=== PATIENT | male | born 1940 | race Caucasian/White ===

== ENCOUNTER → 2017-03-12 | Outpatient (CLI) | payer MEDICARE, BC | LOC: SUN.DIA 03-06 14:28 | DX: E11.9 Type 2 diabetes mellitus without complications (principal); Z71.3 Dietary counseling and surveillance; Z68.25 Body mass index [BMI] 25.0-25.9, adult; E78.5 Hyperlipidemia, unspecified ==

== ENCOUNTER 2017-10-02 01:13 | Emergency (ER) | payer MEDICARE, BC ==
[~2017-10-02] VITALS: Ht 185.4 cm; Wt 90.9 kg
[2017-10-02 01:16] VITALS: TEMP 97.6
[2017-10-02 01:40] LABS: BASO # 0.1 (0.0-0.2); BASO % 0.6 % (0.0-2.0); EOS # 0.2 (0.0-0.7); EOS % 1.2 % (0-4.0); GRAN # 7.4 (1.4-6.5); GRAN % 59.1 % (42.2-75.2); HEMOGLOBIN 14.4 g/dl (13.5-18.0); LYMPH # 3.8 (1.2-3.4); LYMPH % 30.5 % (20.0-51.0); MEAN CELL VOLUME 95 fl (80.0-100.0); MEAN CORPUSCULAR HEMOGLOBIN 32 pg (27.0-31.0); MEAN CORPUSCULAR HGB CONC 34 g/dl (33.0-37.0); MEAN PLATELET VOLUME 10.5 fl (7.4-10.4); MONO # 1.1 (0.1-0.6); MONO % 8.4 % (1.7-9.3); PLATELET COUNT 231 K/mm3 (130-400); RED BLOOD COUNT 4.51 M/mm3 (4.20-5.60); WHITE BLOOD COUNT 12.5 K/mm3 (4.8-10.8)
[2017-10-02 01:41] LABS: INR 1.1 (0.8-3.0); PROTHROMBIN TIME 12.7 SECONDS (9.7-12.8)
[2017-10-02 01:46] LABS: ADJUSTED CALCIUM 9.5 mg/dL (8.4-10.2); ALANINE AMINOTRANSFERASE 37 U/L (21-72); ALBUMIN 4.9 gm/dL (3.5-5.0); ALKALINE PHOSPHATASE 68 U/L (50-136); ANION GAP 13 mmol/L (7-16); BILIRUBIN,TOTAL 0.6 mg/dL (0.0-1.0); BLOOD UREA NITROGEN 27 mg/dL (9-20); CALCIUM 10.2 mg/dL (8.4-10.2); CARBON DIOXIDE 23 mmol/L (22-30); CHLORIDE 104 mmol/L (98-107); CREATINE KINASE 106 U/L (55-170); CREATININE, serum 1.12 mg/dL (0.66-1.25); GLUCOSE 100 mg/dL (74-106); POTASSIUM 4.7 mmol/L (3.4-5.0); SODIUM 141 mmol/L (137-145); TOTAL PROTEIN 8.3 gm/dL (6.4-8.2)
[2017-10-02 01:58] LABS: TROPONIN-I < 0.012 ng/mL (0.000-0.034)
[2017-10-02] MEDS ORDERED: EPA FISH OIL1 SGL PO (02:10)
[2017-10-02] MEDS ORDERED: GLUMETZA500 MG PO (02:10)
[2017-10-02] MEDS ORDERED: VITAMIN FLUSH-F1 CAP (02:11)
[2017-10-02] MEDS ORDERED: VITAMIN B COMPL1 SGL PO (02:11)
[2017-10-02] MEDS ORDERED: NATURAL E400 IU PO (02:12)
[2017-10-02] MEDS ORDERED: VITAMINC1000TA (02:12)
[2017-10-02] MEDS ORDERED: VITAMIN D31000 I1 PO (02:12)
[2017-10-02] MEDS ORDERED: ASPIRIN 81M81 MG/TA2 PO (02:13)
[2017-10-02] MEDS ORDERED: PRINIVIL10 MG PO (02:13)
[2017-10-02 02:52] LABS: COLLECTION METHOD CLEAN CATCH
[2017-10-02 03:01] LABS: MUCOUS Present /lpf; PH 6 (5-8); SQUAMOUS EPITHELIAL None Seen /hpf; URINE APPEARANCE Hazy; URINE BACTERIA None Seen /hpf; URINE BILIRUBIN Negative (NEGATIVE); URINE BLOOD Negative (NEGATIVE); URINE COLOR Amber; URINE GLUCOSE Negative (NEGATIVE); URINE KETONE Negative (NEGATIVE); URINE LEUKOCYTE ESTERASE Negative (NEGATIVE); URINE PROTEIN(semi-quant) Negative (NEGATIVE); URINE UROBILINOGEN Negative (NEGATIVE)
[2017-10-02] MEDS ORDERED: CEFTIN500 MG PO (03:13)
[2017-10-02 03:37] VITALS: BP 127/66; PULSE 70
== END 2017-10-02 03:39 | disposition home or self-care (01) ==
LOC: COL.ER 01:13
PROVIDERS: Emergency Medicine
DX: N39.0 Urinary tract infection, site not specified (principal); R42 Dizziness and giddiness; E11.9 Type 2 diabetes mellitus without complications; Z86.79 Personal history of other diseases of the circulatory system; Z79.84 Long term (current) use of oral hypoglycemic drugs; Z79.82 Long term (current) use of aspirin; Z95.828 Presence of other vascular implants and grafts; Z98.890 Other specified postprocedural states
CPT/HCPCS: J7030

== ENCOUNTER → 2019-11-05 | Outpatient (CLI) | payer MEDICARE, BC ==
[~2019-11-05] MED LIST: ASPIRIN 81M81 MG/TA2 PO; CEFTIN500 MG PO; EPA FISH OIL1 SGL PO; GLUMETZA500 MG PO; NATURAL E400 IU PO; PRINIVIL10 MG PO; VITAMIN B COMPL1 SGL PO; VITAMIN D31000 I1 PO; VITAMIN FLUSH-F1 CAP; VITAMINC1000TA
== END ==
LOC: COL.RAD 09:45
DX: I71.3 Abdominal aortic aneurysm, ruptured (principal); N40.0 Benign prostatic hyperplasia without lower urinary tract symptoms
CPT/HCPCS: Q9967

== ENCOUNTER → 2020-03-14 | Outpatient (CLI) | payer MEDICARE, BC | LOC: COL.VAS 12:27 | DX: M79.89 Other specified soft tissue disorders (principal) ==

== ENCOUNTER 2020-10-23 11:03 | Inpatient (IN) | payer MEDICARE, BC ==
[~2020-10-23] VITALS: Ht 185.4 cm; Wt 84.9 kg
[~2020-10-23 11:03] MED LIST changes: +B-12 500 MCG PO; -EPA FISH OIL1 SGL PO; +MASON NATURAL1200 MG PO; +MASON NATURAL2000 IU PO; -PRINIVIL10 MG PO; +PRINIVIL20 MG PO; -VITAMIN B COMPL1 SGL PO; -VITAMIN D31000 I1 PO
[2020-10-23 12:00] LABS: BASO # 0.1 (0.0-0.2); BASO % 0.4 % (0.0-2.0); EOS # 0.1 (0.0-0.7); EOS % 0.7 % (0-4.0); GRAN # 13.1 (1.4-6.5); GRAN % 78.7 % (42.2-75.2); HEMATOCRIT 38.8 % (42.0-52.0); HEMOGLOBIN 12.9 g/dl (13.5-18.0); LYMPH % 11.9 % (20.0-51.0); MEAN CELL VOLUME 93 fl (80.0-100.0); MEAN CORPUSCULAR HEMOGLOBIN 31 pg (27.0-31.0); MEAN CORPUSCULAR HGB CONC 33 g/dl (33.0-37.0); MEAN PLATELET VOLUME 9.7 fl (7.4-10.4); MONO # 1.2 (0.1-0.6); MONO % 7.1 % (1.7-9.3); PLATELET COUNT 306 K/mm3 (130-400); RED BLOOD COUNT 4.19 M/mm3 (4.20-5.60); REDCELL DISTRIBUTION WIDTH-CV 13.8 % (11.5-14.5)
[2020-10-23 12:21] LABS: ALBUMIN 4.2 gm/dL (3.5-5.0); BILIRUBIN,TOTAL 0.6 mg/dL (0.0-1.0); CALCIUM 9.9 mg/dL (8.4-10.2); CREATININE, serum 0.84 (0.66-1.25); POTASSIUM 4.3 mmol/L (3.4-5.0)
[2020-10-23 13:20] LABS: COLLECTION METHOD CLEAN CATCH
[2020-10-23 13:42] LABS: MUCOUS Present /lpf; PH 5 (5-8); SQUAMOUS EPITHELIAL 0-2 /hpf; URINE APPEARANCE Cloudy; URINE BACTERIA Rare /hpf; URINE BILIRUBIN Negative (NEGATIVE); URINE BLOOD 1+ (NEGATIVE); URINE COLOR Yellow; URINE GLUCOSE Negative (NEGATIVE); URINE KETONE Trace (NEGATIVE); URINE LEUKOCYTE ESTERASE 3+ (NEGATIVE); URINE NITRATE Negative (NEGATIVE); URINE PROTEIN(semi-quant) 1+ (NEGATIVE); URINE UROBILINOGEN Negative (NEGATIVE)
[2020-10-23 15:13] VITALS: BP 141/63; PULSE 102; TEMP 99.3
[2020-10-23 16:30] VITALS: BP 156/78; PULSE 89
[2020-10-23] MEDS ORDERED: FLOMAX 0.40.4 MG/CAP PO (17:15)
[2020-10-23] MEDS ORDERED: LIPITOR20 MG PO (17:16)
[2020-10-23] MEDS ORDERED: CENTRUM SILVER1 TAB PO (17:17)
--- NOTE | 2020-10-23 18:00 | NUR ---
Patient is resting comfortably. Denies nausea. Patient is better with the dilauded RAILWAY SIGNALLING ENGINEER. Explained how RAILWAY SIGNALLING ENGINEER works and how the button works. Explained how often he can press the button. Dr Bell seen patient. No other changes at this time. Patient voided once, no stone in urine. Vital signs stable. Patient has severe anxiety that causes him to not be able to control his muscle movement and will have spastic arm and leg movement. Dr Bell stopped to see patient but patient was sleeping so he let him sleep and said he will check in the morning. No other changes at this time. Call light within reach.
--- NOTE | 2020-10-23 18:30 | NUR ---
Pt currently lying in bed. Pt stated that he has no pain at this time. He does still have the tremors. Pt is alert and oriented x4. Received report from MINERVA Evangelista.
[2020-10-23 20:00] VITALS: BP 154/64; PULSE 110
--- NOTE | 2020-10-23 21:30 | NUR ---
During pt assessment. Pt oxygen was down to the 80s. Pt was put on 4 liters of oxygen at this time and respiratory therapy was contacted. Pt spasms were very intensed. Pt blood pressure was 100/50 mannually, pt ax temp was at 103.1 and respirations were 24. Dr. Bell was contacted at this time and stated that he wants the pt to go to OR. He spoke with warehouse pricing and inventory clerk at this time. I am currently at pt bedside. Pt is currently lying in bed and his oxygen level is at 96% on room air. Dr. Bell did order pt to have 2gm of Rocephin and this medication was given at this time. Pt consent was verbally verfied by his , pt wanted his to consent. This was verified by myself and MINERVA Llamas. Pt was informed about going into surgery. He has no complaints at this time. He is currently resting in bed and his his call light within reach and his bed is in lowest position.
[2020-10-23 21:31] VITALS: BP 100/40; PULSE 126; TEMP 103.1
--- NOTE | 2020-10-23 22:44 | NUR ---
Pt. off the floor to PACU with MINERVA Oscar.
[2020-10-24] VITALS (15 sets, daily range): BP systolic 84–145; BP diastolic 34–84; PULSE 78–118; TEMP 97.6–99.3
--- NOTE | 2020-10-24 00:28 | NUR ---
Pt arrived to the floor and is alert and oriented x4. Pt arrived via strecher. Pt stated that he has no pain at this time. Pt still has tremors. Pt vitals are within normal limits and his lungs sounds are clear and heart sounds are normal S1 and S2 sounds. Pt cherry is in place and has light peach colored urine in the tube at this time. Pt does not have any urine in the meter. Pt has his call light within reach and his bed is in lowest position.
--- NOTE | 2020-10-24 01:37 | NUR ---
Pt currently resting in bed. Pt stated that he has no pain at this time. He said he just feels like he has to go. Pt current blood pressure was done with the mannually and I was 110/50. Pt oxygen is currently at 100 but he ius sitll on 2 liters of oxygen. Pt cherry is currently draining peach colored urine. The amount of output currenty is 25cc this was with positioning the tubing. Pt did tolerate some water and was able to tolerate some sips of water. Pt has his call light within reach. His bed is in lowest position.
--- NOTE | 2020-10-24 02:03 | NUR ---
Pt currently resting in bed. Pt has his call light within reach. No tremors noted while pt is sleeping.
--- NOTE | 2020-10-24 02:32 | NUR ---
Dr. Bell was notified because pt currently output was 10cc in an hour. He ordered a bolus of 250. Bolus was done at this time from pt current fluids. Pt current blood pressure is 90/49 and heart rate at 101 and current temperature is 98.9. Pt has no complaints of pain at this time. Pt has his call light within reach and his bed is in lowest position.
--- NOTE | 2020-10-24 03:37 | NUR ---
Pt resting in bed and has his call light within reach.
--- NOTE | 2020-10-24 04:09 | NUR ---
Contacted Dr. Bell and gave him and update on the pt. Pt still in the last hour only got about 25cc. He ordered another bolus of 250. Pt was updated on everything. Pt has been taking sips and he has been tolerating the ice chips.
--- NOTE | 2020-10-24 05:17 | NUR ---
Pt resting in bed. Tremors aren't noted at this time. Pt is currently sleeping. Pt still has 20-[address] Bell has been notified. He was the pt to continued being monitored. He wants to see if pt output will increase. Pt blood pressure did increase 111/55 and heart rate is at 88. Pt has his call light within reach and his be is in lowest position.
--- NOTE | 2020-10-24 05:56 | NUR ---
Contacted Dr. Cortes at this time to update him on pt status and pt lactic acid lab. I informed him that his lactic acid lab was at 3.1. I also updated him on the pt urine output that has not really increased. Pt blood pressure are closer to the normal range now. Pt last blood pressure was 110/50. did inform me that he wanted me to contact Dr. Oreilly if I have anymore questions for this pt since he had him on yesterday. He also wanted the lactic acid level redrawn at 1000. Orders has been placed and pt has his call light within reach and his bed is in lowest position.
--- NOTE | 2020-10-24 06:03 | NUR ---
Pt resting in bed. No tremors noted at this time. Pt has his call light within reach. Pt urine out put was 30cc the last hour. Dr. Cortes was notifed about the pt condtion.
--- NOTE | 2020-10-24 06:50 | NUR ---
Dr. Bell came in to see pt this morning. He was updated about pt labs and the urine output. Pt stated that he has no pain at this time. Pt has his call light within reach and his bed is in lowest position.
--- NOTE | 2020-10-24 09:50 | NUR ---
Initial visit; Patient thanked Skilled Nursing Case Manager for keeping him in her prayers and offering God's blessings.
--- NOTE | 2020-10-24 10:30 | NUR ---
SW met with the patient to discuss discharge plan. The patient lives in [place] with his , Shana (ph#[phone]). He reports independence with ADLs and does not have any DME. The patient's PCP is Dr. Maria Luisa Awan and he receives his medications from [facility]. He reports no difficulties obtaining his meds. The patient does not have a DPOA-HC in EMR, but he states that he does have one completed and that his is his DPOA-HC. The patient plans to return home with his upon discharge. CHARLIE then contacted and reviewed the d/c plan with the patient's , Shana. Shana reports no concerns with the patient returning back home upon discharge. No additional needs at this time.
[2020-10-24 16:32] LABS: CALCIUM 7.8 mg/dL (8.4-10.2); CREATININE, serum 1.82 (0.66-1.25); POTASSIUM 4.7 mmol/L (3.4-5.0)
[2020-10-24 16:49] LABS: MEAN CELL VOLUME 94 fl (80.0-100.0); MEAN CORPUSCULAR HGB CONC 33 g/dl (33.0-37.0); MEAN PLATELET VOLUME 9.3 fl (7.4-10.4); RED BLOOD COUNT 3.34 M/mm3 (4.20-5.60); REDCELL DISTRIBUTION WIDTH-CV 14.6 % (11.5-14.5)
[2020-10-24 16:50] LABS: HEMATOCRIT 31.3 % (42.0-52.0); HEMOGLOBIN 10.4 g/dl (13.5-18.0); MEAN CORPUSCULAR HEMOGLOBIN 31 pg (27.0-31.0); PLATELET COUNT 162 K/mm3 (130-400)
--- NOTE | 2020-10-24 17:00 | NUR ---
Patient with increased SOA, oximeter currently at 2l/nc via oxymask, oximeter 78%. Oxygen increased to 5l/nc via oxymask, oximeter increased to 96%. Coarse lung sounds to bilateral bases, limited air movement noted. Use of accessory muscles noted with breath. CARSON Hassan notified.
--- NOTE | 2020-10-24 17:08 | NUR ---
Dr Oreilly notified of lab results.
[2020-10-24 17:18] LABS: BAND 33 % (0-10); EOSINOPHIL 0 % (0-4); LYMPHOCYTE 7 % (20.0-51.0); METAMYELOCYTE 0 % (0-0); MYELOCYTE 1 % (0-0); NEUTROPHILS 56 % (42.0-75.2); PLATELET ESTIMATE NORMAL (NORMAL)
[2020-10-24 18:05] LABS: ARTERIAL BLD GAS O2 SATURATION 89.5 % (92-100); ARTERIAL BLD GAS TCO2 CT 17.8; ARTERIAL BLOOD GAS HCO3 16.6 meq/L (22-26); ARTERIAL BLOOD GAS PCO2 38.9 mmHg (35-45); ARTERIAL BLOOD GAS PO2 65.1 mmHg (80-100); ARTERIAL BLOOD GAS pH 7.25 (7.35-7.45)
--- NOTE | 2020-10-24 19:30 | NUR ---
Patient called for an updated. Updated. No further questions at this time.
--- NOTE | 2020-10-24 19:35 | NUR ---
Per JENNIFER Georges send out covid. Do not place patient in isolation, not a PUI.
--- NOTE | 2020-10-24 20:40 | NUR ---
Left for CT scan
--- NOTE | 2020-10-24 20:45 | NUR ---
Resting in bed. Assessment complete. Right lower lobe diminished otherwise clear. Heart sounds irregular. Bowels active x4. Pulses present throughout. Bilateral lower ext edema +2. Valentin to dependent drainage, tea colored cloudy urine. Denies needs. Denies pain. Call light in reach. Patient currently on 6 liters via oxymask.
--- NOTE | 2020-10-24 20:46 | NUR ---
Returned from CT
--- NOTE | 2020-10-25 | NUR ---
Resting in bed. Reported right groin pain. Provided with schedule toradol. Will monitor.
[2020-10-25 00:11] VITALS: BP 130/79; PULSE 81; TEMP 98.3
[2020-10-25 04:00] VITALS: BP 144/57; PULSE 74; TEMP 97.8
--- NOTE | 2020-10-25 04:15 | NUR ---
Resting in bed. Denies needs. Call light in reach.
--- NOTE | 2020-10-25 05:19 | NUR ---
Patient remained on 6 liters during night. Otherwise uneventful night. Resting in bed this AM. Call light in reach.
--- NOTE | 2020-10-25 07:07 | NUR ---
Report given to MINERVA Urban
[2020-10-25 07:47] LABS: MEAN CELL VOLUME 93 fl (80.0-100.0); MEAN CORPUSCULAR HEMOGLOBIN 31 pg (27.0-31.0); MEAN CORPUSCULAR HGB CONC 33 g/dl (33.0-37.0); MEAN PLATELET VOLUME 10.5 fl (7.4-10.4); PLATELET COUNT 176 K/mm3 (130-400); RED BLOOD COUNT 3.53 M/mm3 (4.20-5.60); REDCELL DISTRIBUTION WIDTH-CV 14.6 % (11.5-14.5)
[2020-10-25 07:52] LABS: HEMATOCRIT 32.9 % (42.0-52.0)
[2020-10-25 08:02] LABS: CALCIUM 8.2 mg/dL (8.4-10.2); CREATININE, serum 1.34 (0.66-1.25); POTASSIUM 4.3 mmol/L (3.4-5.0)
[2020-10-25 08:15] VITALS: BP 152/78; PULSE 90; TEMP 97.8
[2020-10-25 09:16] LABS: BAND 39 % (0-10); LYMPHOCYTE 2 % (20.0-51.0)
[2020-10-25 09:17] LABS: NEUTROPHILS 58 % (42.0-75.2); PLATELET ESTIMATE NORMAL (NORMAL)
--- NOTE | 2020-10-25 11:09 | NUR ---
Patient alert and oriented, answers questions appropriately. See assessment. Lungs decreased in bases, clear in upper lobes. Oxygen at 4l/oxymask. No c/o SOA. No use of accessory muscles noted. Heart tones strong and even. Valentin catheter in place and draining clear rai urine. No c/o at this time.
[2020-10-25 11:11] VITALS: BP 129/98; PULSE 84; TEMP 97.4
[2020-10-25 15:49] VITALS: BP 151/83; PULSE 86; TEMP 97.8
[2020-10-25 19:28] VITALS: BP 134/63; PULSE 90; TEMP 98.7
--- NOTE | 2020-10-25 21:00 | NUR ---
Pt takes HS meds without problem. Is alert and oriented x4. Has SL to right forearm without redness or swelling. Kennard given for feet discomfort. Oxygen at 3L/nc. Has spastic movements of body, normal for patient. Dr Bell was in to see pt. Valentin to BSD with yellow urine.
[2020-10-26 08:00] VITALS: BP 106/79; PULSE 88; TEMP 98.1
--- NOTE | 2020-10-26 09:36 | NUR ---
Initial visit; Patient thanked Administrative Services Officer for offering God's blessings and wishing him well.
[2020-10-26 12:28] VITALS: BP 121/74; PULSE 86; TEMP 97.4
[2020-10-26 12:51] LABS: MAGNESIUM 2.1 mg/dL (1.6-2.3)
[2020-10-26 12:55] LABS: HEMOGLOBIN 12.2 g/dl (13.5-18.0); MEAN CELL VOLUME 92 fl (80.0-100.0); MEAN CORPUSCULAR HEMOGLOBIN 31 pg (27.0-31.0); MEAN CORPUSCULAR HGB CONC 34 g/dl (33.0-37.0); MEAN PLATELET VOLUME 10.8 fl (7.4-10.4); PLATELET COUNT 184 K/mm3 (130-400); RED BLOOD COUNT 3.94 M/mm3 (4.20-5.60); REDCELL DISTRIBUTION WIDTH-CV 14.4 % (11.5-14.5)
[2020-10-26 12:56] LABS: HEMATOCRIT 36.1 % (42.0-52.0)
[2020-10-26 13:18] LABS: BAND 31 % (0-10); LYMPHOCYTE 6 % (20.0-51.0); NEUTROPHILS 62 % (42.0-75.2); PLATELET ESTIMATE NORMAL (NORMAL); TOXIC GRANULATION PRESENT
[2020-10-26 13:24] LABS: ALBUMIN 3.2 gm/dL (3.5-5.0); BILIRUBIN,TOTAL 0.6 mg/dL (0.0-1.0); CALCIUM 8.7 mg/dL (8.4-10.2); CREATININE, serum 0.97 (0.66-1.25); POTASSIUM 3.7 mmol/L (3.4-5.0); TOTAL PROTEIN 6.8 gm/dL (6.4-8.2)
[2020-10-26 16:21] VITALS: BP 117/85; PULSE 88; TEMP 98.1
--- NOTE | 2020-10-26 18:30 | NUR ---
Patient had a good day. He got up and walked in the hallways. Urine is still rai. Had some pain to abdomen and groin area today. He stated it gets worse with movement. No complaints of nausea. He stated he keeps have dry productive cough. [place] given once for pain. No other changes at this time. Call light within reach.
[2020-10-26 19:55] VITALS: BP 111/59; PULSE 83; TEMP 97.5
--- NOTE | 2020-10-26 21:20 | NUR ---
Pt. sitting up in bed at this time. Pt. is A&OX3, assessment complete. INT to rt. wrist patent. Pt. denies pain or other needs, call light within reach.
[2020-10-26 23:51] VITALS: BP 111/53; PULSE 82; TEMP 97.3
[2020-10-27 04:30] VITALS: BP 119/70; PULSE 82; TEMP 97.8
[2020-10-27 07:20] VITALS: BP 138/58; PULSE 84; TEMP 97.7
[2020-10-27 08:43] LABS: BASO # 0.1 (0.0-0.2); BASO % 0.5 % (0.0-2.0); EOS # 0.3 (0.0-0.7); EOS % 1.5 % (0-4.0); GRAN # 14.4 (1.4-6.5); HEMOGLOBIN 12.2 g/dl (13.5-18.0); LYMPH # 1.3 (1.2-3.4); LYMPH % 7.6 % (20.0-51.0); MEAN CELL VOLUME 89 fl (80.0-100.0); MEAN CORPUSCULAR HEMOGLOBIN 30 pg (27.0-31.0); MEAN CORPUSCULAR HGB CONC 34 g/dl (33.0-37.0); MEAN PLATELET VOLUME 10.2 fl (7.4-10.4); MONO # 0.7 (0.1-0.6); MONO % 4.2 % (1.7-9.3); PLATELET COUNT 189 K/mm3 (130-400); RED BLOOD COUNT 4.08 M/mm3 (4.20-5.60)
[2020-10-27 08:50] LABS: HEMATOCRIT 36.4 % (42.0-52.0)
[2020-10-27 08:52] LABS: CALCIUM 9.2 mg/dL (8.4-10.2); CREATININE, serum 0.87 (0.66-1.25)
--- NOTE | 2020-10-27 10:56 | NUR ---
The patient remains on 3 liters of oxygen. SW met with the patient to review d/c plan and to discuss home health and it's benefits. The patient states that he still plans on returning home with his upon discharge. He states that he is not interested in any home health at this time. The patient states that if he were to need oxygen, he would prefer to get it from [facility]. SW to continue to follow.
[2020-10-27 11:24] VITALS: BP 117/62; PULSE 82; TEMP 97.7
[2020-10-27] MEDS ORDERED: LASIX 20MG TABL20 MG PO (11:25)
[2020-10-27] MEDS ORDERED: OMNICEF 300MG300 MG PO (11:25)
--- NOTE | 2020-10-27 11:30 | NUR ---
Valentin catheter discontinued. Discussed discharge plan. Explained we have to get him set up with oxygen to go home with. He verbalized understanding. Notified his of the discharge plan. Patient has been doing well today. His pain to abdomen has been better. No complaints of nausea. No other changes at this time.
--- NOTE | 2020-10-27 14:00 | NUR ---
The patient is ready to d/c today. An exercise oximetry was ordered. The patient qualified for oxygen. CHARLIE contacted and emailed the oxygen order to Stefanie at [facility].
[2020-10-27] MEDS ORDERED: PROAIR HFA0.09 MG/AC IH (14:11)
--- NOTE | 2020-10-27 16:05 | NUR ---
The patient's RN notified CHARLIE that the patient's contacted her to inform her that she picked up the patient's oxygen from [facility]. SW contacted the patient's , Shana, and she confirmed this. The patient is to discharge back home with his today, 10/27. CHARLIE presented and read the IM form outloud to the patient. The patient verbalized understanding and gave CHARLIE approval to sign the form on his behalf. CHARLIE provided him with a copy. No additional needs at this time.
--- NOTE | 2020-10-27 16:29 | NUR ---
Patient is discharging home. His oxygen was delivered to the house. Discharge instructions discussed with patient. His is picking him up. All belongings packed up and sent with patient. His home medications were returned to patient. 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 Explained when his follow up appointments are. Patient verbalized understanding. All belongings packed up and sent with patient. Patient walked out via wheel chair by Emmie COOPER
== END 2020-10-27 16:30 | disposition home or self-care (01) | DRG 853 ==
LOC: COL.ER 11:03 → SURG 13:45
PROVIDERS: Family Medicine; Hospitalist; Physician Assistant; ADMIT Urology
PROC: 0T788DZ Dilation of Bilateral Ureters with Intraluminal Device, Via Natural or Artificial Opening Endoscopic (ICD-10-PCS; principal; 2020-10-23 23:00)
DX: A41.89 Other specified sepsis (principal); J96.01 Acute respiratory failure with hypoxia; N20.1 Calculus of ureter; N17.9 Acute kidney failure, unspecified; J81.1 Chronic pulmonary edema; E87.2 Acidosis; J90 Pleural effusion, not elsewhere classified; D64.9 Anemia, unspecified; N40.0 Benign prostatic hyperplasia without lower urinary tract symptoms; E78.5 Hyperlipidemia, unspecified; I10 Essential (primary) hypertension; I73.9 Peripheral vascular disease, unspecified; E11.9 Type 2 diabetes mellitus without complications; Z20.828 Contact with and (suspected) exposure to other viral communicable diseases; I71.4 Abdominal aortic aneurysm, without rupture; E87.70 Fluid overload, unspecified; J43.9 Emphysema, unspecified; R05 Cough; Z79.84 Long term (current) use of oral hypoglycemic drugs; Z87.891 Personal history of nicotine dependence
CPT/HCPCS: OP; 99223; 99232-AI; 99233-AI; 99239; A4314; C1769; C2617; G0378; J0696; J1170; J1885; J1940; J2270; J2405; J2704; J3010; J7030; J7120; Q9967

== ENCOUNTER 2020-11-10 05:26 | Day surgery (SDC) | payer MEDICARE, BC ==
[~2020-11-10] VITALS: Ht 185.4 cm; Wt 80.9 kg
[~2020-11-10 05:26] MED LIST changes: +CENTRUM SILVER1 TAB PO; +FLOMAX 0.40.4 MG/CAP PO; +LASIX 20MG TABL20 MG PO; +LIPITOR20 MG PO; +OMNICEF 300MG300 MG PO; +PROAIR HFA0.09 MG/AC IH
[2020-11-10 05:46] VITALS: BP 112/60; PULSE 101; TEMP 97.3
[2020-11-10 08:30] VITALS: BP 128/57; PULSE 86
--- NOTE | 2020-11-10 08:30 | NUR ---
Patient returns to room 8 per cart from PACU accompanied by Amarilys PALMA and is awake and alert. Temp 97.5 and room air sats 97% on 2L per nasal cannula. IV fluids infusing at TKO. Continues to have nervous twitching. Denies pain or nausea. Siderails up x2 and call light in reach. Allowed to rest. Sipping on water.
[2020-11-10 08:45] VITALS: BP 119/49; PULSE 78
--- NOTE | 2020-11-10 08:45 | NUR ---
Sipping on coffee and water. Resting and denies discomfort.
[2020-11-10 08:54] VITALS: TEMP 98.3
[2020-11-10 09:00] VITALS: BP 122/56; PULSE 86
--- NOTE | 2020-11-10 09:00 | NUR ---
Sipping on coffee and eating muffin. Continues to deny pain or nausea.
--- NOTE | 2020-11-10 09:10 | NUR ---
Spouse called for ride home. Patient assisted into the bathroom. Able to void and returns to room. Urine pink in color.
--- NOTE | 2020-11-10 09:30 | NUR ---
Patient is ready for discharge and has voided x3 of pink tinged urine. Dismissal instructions given and voices understanding of these. Provided follow up appointment date and time.
--- NOTE | 2020-11-10 09:45 | NUR ---
Patient dismissed to home driven by spouse and taken to the front door per wheelchair and assisted into vehicle by this RN with dismissal instructions in hand.
== END 2020-11-10 09:45 | disposition home or self-care (01) ==
LOC: SDCO 05:26
DX: N20.1 Calculus of ureter (principal); N35.919 Unspecified urethral stricture, male, unspecified site; E11.9 Type 2 diabetes mellitus without complications; E78.5 Hyperlipidemia, unspecified; I10 Essential (primary) hypertension; E78.1 Pure hyperglyceridemia; E88.81 Metabolic syndrome and other insulin resistance; B35.1 Tinea unguium; M19.90 Unspecified osteoarthritis, unspecified site; D64.9 Anemia, unspecified; Z79.84 Long term (current) use of oral hypoglycemic drugs; Z96.0 Presence of urogenital implants; Z79.82 Long term (current) use of aspirin; Z99.81 Dependence on supplemental oxygen; Z87.891 Personal history of nicotine dependence; Z87.440 Personal history of urinary (tract) infections
CPT/HCPCS: C1769; J0690; J1100; J2405; J2704; J3010; J7030

== ENCOUNTER 2021-03-07 13:30 | Outpatient (RCR) | payer MEDICARE, BC | END 2021-04-11 | disposition still patient (30) | LOC: WSC | DX: M54.5 Low back pain (principal) ==

== ENCOUNTER 2021-05-09 10:00 | Outpatient (RCR) | payer MEDICARE, BC | END 2021-05-10 08:51 | disposition home or self-care (01) | LOC: WSOT 10:00 | DX: S62.317A Displaced fracture of base of fifth metacarpal bone, left hand, initial encounter for closed fracture (principal) ==

== ENCOUNTER 2021-11-24 10:56 | Inpatient (IN) | payer MEDICARE, BC ==
[~2021-11-24] VITALS: Ht 185.4 cm; Wt 78.7 kg
[2021-11-24] VITALS (10 sets, daily range): BP systolic 105–137; BP diastolic 44–89; PULSE 74–88; TEMP 97.4–97.7
[2021-11-24] MEDS ORDERED: HALDOL 1MG T1 MG/TAB PO (11:41)
--- NOTE | 2021-11-24 15:30 | NUR ---
Pt presented to PACU from OR and preparations made to administer mitomycin into bladder. CBI off. Bladder drained and cherry catheter clamped. Mitomycin verified correct with Ileana Jonas RN by comparing printed label with computer order. Note volume is 20ml. Pt identity verified by birthdate reported by pt and his name along with scanning his bracelet ID. Using appropriate PPE and following protocal, mitomycin 40mg in 20ml instilled into bladder. PACU nurse aware and anticipates transporting patient to room in next 15 minutes. All PPE and chemotherapy contaminated items bagged and placed in yellow container. Signage placed on doorway of pt's floor room and chemotherapy cart left at doorway. Advised Carolyn Ahuja RN of mitomycin in place and expected arrival in room soon.
--- NOTE | 2021-11-24 15:30 | NUR ---
PATIENT ADMITED INTO ROOM 343 POST OP. A&O. VSS. DENIES PAIN OR N/V. MITOMYCIN INSTILLED IN BLADDER, CBI CLAMPED. PATIENT BEING REPOSITIONED APPROX EVERY 15-20 MIN FOR MITOMYCIN EFFECT. ESPINOZA TO DD WITH SMALL AMOUNTS OF BLOODY URINE NOTED. IV FLUIDS INFUSING INTO LEFT WRIST IV. LIQUIDS AT BEDSIDE AND MUFFINS BEING BROUGHT UP PER PATIENT REQUEST. ON HER WAY UP TO ROOM. HEAD TO TOE ASSESSMENT COMPLETE. ORIENTED TO ROOM. CALL LIGHT IN REACH
--- NOTE | 2021-11-24 16:25 | NUR ---
Pt has eaten some pudding and muffin and tolerated well. I did review the chemotherapy teaching with both the patient and his , Shana. Both verbalized understanding and questions were invited and answered. Printed information provided for their review as well. Pt has been repostitioning every 15 minutes and tolerating well.
--- NOTE | 2021-11-24 17:25 | NUR ---
Valentin unclamped at 5pm and allowed to drain, CBI started as urine is bloody but no clots noted. Pt did report feeling of bladder pressure was reduced after release. Approximately 450ml of urine and CBI released into drainage bag. CBI stopped briefly to allow exchange of drainage bag and then restarted. Questions answered regarding mitomycin teaching including reminder to double flush the toilet after each use. Pt was asking about eating supper and this question was relayed to July Graff RN who reports that she will follow up.
[2021-11-25 00:40] VITALS: BP 96/53; PULSE 71; TEMP 97.5
--- NOTE | 2021-11-25 04:00 | NUR ---
PATIENT HAD ROUGH NIGHT. ALERT AND ORIENTED. ESPINOZA WITH CBI RUNNING FAST TO DD WITH RED OUTPUT AND LARGE CLOTS. PATIENT REPORTED FEELINGS OF FULLNESS AND ESPINOZA WAS IRRIGATED AND CLOTS WERE PASSED. THIS WAS REPEATED SEVERAL TIMES PATIENT CONTINUED TO COMPLAIN OF FEELINGS OF FULLNESS THROUGHOUT NIGHT BY THIS RN AND CELESTINE RN. PATIENT THEN C/O DISCOMFORT AT THE HEAD OF HIS PENIS AND IN THE SHAFT. GIVEN PRN SUJEY, B&O SUPP, AND UROJET WITH NO RELIEF. CALL PLACED TO [facility] AND PRN LEVSIN ORDERED AND GIVEN. PATIENT PAIN IS CURRENTLY TOLERABLE AND HE IS RESTING IN BED, CALL LIGHT WITHIN REACH, CBI GOING MODERATELY FAST.
[2021-11-25 05:00] VITALS: BP 83/41; PULSE 64; TEMP 97.8
--- NOTE | 2021-11-25 06:38 | NUR ---
PATIENTS BLOOD PRESSURE LOW 80s/40s PER BELLPERSON. RESTARTED ON IV FLUIDS.
--- NOTE | 2021-11-25 08:00 | NUR ---
PATIENT IS A&O. NOTED HYPOTENTION EARLY THIS AM, CURRENTLY IN THE 90'S SYSTOLIC. PATIENT IS ASYMPTOMATIC AND SITTING UP IN BED WITH BREAKFAST TRAY. IV FLUIDS INFUSING VIA PUMP. ESPINOZA TO DD WITH CBI INFUSING AT MOD RATE. NOTED CONTRERAS COLORED URINE WITH SOME SMALL CLOTS. CBI INCREASED TO FAST RATE. SCD'S CURRENTLY OFF. AM MEDS GIVEN. HEAD TO TOE ASSESSMENT COMPLETE. PATIENT ON CHEMO PRECAUTIONS DUE TO MITOMYCIN. NOW AT BEDSIDE. NO OTHER NEEDS. CALL LIGHT IN REACH.
[2021-11-25 08:29] VITALS: BP 92/47; PULSE 78; TEMP 97.4
--- NOTE | 2021-11-25 12:27 | NUR ---
Chute Greaser prayed and offered support with patient while spouse was in room.
[2021-11-25 12:30] VITALS: BP 105/52; PULSE 84; TEMP 97.6
--- NOTE | 2021-11-25 13:09 | NUR ---
SW completed intake with patient's who was present in room at the time. Shana Sanchez [phone] provides that she and patient live in [facility]. Patient does not utilize DME and is independent with ADLs. PCP is Dr. Fiore, pharmacy is [facility]. Patient does not have anyone appointed as DPOA of HC. DC plan is home. SW will continue to follow. DC plan: home
[2021-11-25 16:00] VITALS: BP 90/43; PULSE 74; TEMP 97.5
[2021-11-25 20:30] VITALS: BP 118/50; PULSE 73; TEMP 97.6
--- NOTE | 2021-11-25 20:30 | NUR ---
Pt. sitting up in bed. Pt. is A&OX3, assessment complete. IV to lt. wrist patent, IV fluids infusing per orders. Valentin catheter with CBI running mod/fast. Urine is haro red, no clots noted at this time. Pt. denies pain or other needs, call light within reach.
[2021-11-26 06:56] VITALS: BP 116/43; PULSE 84; TEMP 97.5
--- NOTE | 2021-11-26 07:00 | NUR ---
PT RESTING IN BED. CBI RUNNING. NO NEEDS AT THIS TIME. WILL COINTUE TO [place].
[2021-11-26 08:00] VITALS: BP 140/38; PULSE 83; TEMP 97.5
[2021-11-26 12:00] VITALS: BP 112/47; PULSE 84; TEMP 98
[2021-11-26 15:47] VITALS: BP 120/51; PULSE 91; TEMP 98.2
[2021-11-26 19:45] VITALS: BP 119/42; PULSE 93; TEMP 97.5
--- NOTE | 2021-11-26 20:30 | NUR ---
Pt. up to the bathroom. Pt. ambulated with standby assist back to bed and repositioned self for comfort. Pt. is A&OX3, assessment complete. IV to lt. wrist patent. Valentin catheter with CBI running moderate, urine is haro red at this time. Some clots noted in tubing. Pt. reports that he has off and on twinges of pain to the bladder area. Discussed taking a levsin for spasms. Pt. agreeable to this. Pt. denies other needs, call light within reach
[2021-11-26 23:44] VITALS: BP 102/35; PULSE 86; TEMP 98
[2021-11-27] VITALS (11 sets, daily range): BP systolic 97–122; BP diastolic 40–63; PULSE 59–86; TEMP 97–98.2
--- NOTE | 2021-11-27 07:32 | NUR ---
PT TO OR AFTER 5 IF URINE IS NOT CLEARING. NPO @ 12::00. PRIOR ENCOURAGE WATER 1L Q 1-2 HR. IRRAGATE BLADDER FOR CLOTS PRIOR TO DC ESPINOZA.
--- NOTE | 2021-11-27 09:58 | NUR ---
Initial visit; Patient uncomfortably cold. Boomboat Operator relayed the message to his nurse who contacted facilities to take care of the problem. Patient thanked Boomboat Operator for keeping him in her prayers.
--- NOTE | 2021-11-27 10:15 | NUR ---
PT RESTING IN BED AFTER GOING TO BR. AMBULATED WITH HALTING GATE. PLAN ON RETURN TO OR THIS PM TO CAUTERIZE BLEEDERS. CBI RUNNING AT A HIGH RATE..
--- NOTE | 2021-11-27 16:56 | NUR ---
PT TO SURGERY AT THIS TIME. CONSENT OBTAINED WITH PERIOP NURSES.
[2021-11-27 19:17] LABS: BASO % 0.2 % (0.0-2.0); EOS # 0.1 K/mm3 (0.0-0.7); EOS % 1.1 % (0.0-4.0); GRAN # 9.3 K/mm3 (1.4-6.5); GRAN % 75.5 % (42.2-75.2); LYMPH # 1.8 K/mm3 (1.2-3.4); LYMPH % 14.4 % (20.0-51.0); MEAN CELL VOLUME 93 fl (80.0-100.0); MEAN CORPUSCULAR HGB CONC 33 g/dl (33.0-37.0); MEAN PLATELET VOLUME 10.3 fl (7.4-10.4); MONO % 8.3 % (1.7-9.3); PLATELET COUNT 206 K/mm3 (130-400); REDCELL DISTRIBUTION WIDTH-CV 15.4 % (11.5-14.5)
[2021-11-27 19:18] LABS: HEMATOCRIT 25.1 % (42.0-52.0); HEMOGLOBIN 8.3 g/dl (13.5-18.0); MEAN CORPUSCULAR HEMOGLOBIN 31 pg (27-31)
--- NOTE | 2021-11-27 21:40 | NUR ---
PATIENT UP TO ROOM 343 AT 1900. VSS. ESPINOZA TO DD WITH PALE YELLOW URINE WITH SEDIMENT. CBI INFUSING MODERATE AT THIS TIME. IVF TO L WRIST. DENIES PAIN AT THIS TIME. TOLERATED PO FOOD THAT WAS BROUGHT IN BY . TOLERATED SCHEDULED MEDICATIONS, SEE EMAR. REQUESTED SOMETHING FOR SLEEP AND PRN MELATONIN GIVEN. PATIENT RESTING COMFORTABLY IN BED NOW. CBI INFUSING AT A SLOW RATE.
[2021-11-28 00:51] VITALS: BP 99/68; PULSE 76; TEMP 97.4
[2021-11-28 04:37] VITALS: BP 98/52; PULSE 87; TEMP 98.7
[2021-11-28 07:48] VITALS: BP 122/44; PULSE 69; TEMP 97.5
--- NOTE | 2021-11-28 07:53 | NUR ---
PRIMED AND PULLED ESPINOZA CATHETER, REMOVED 30 MLS OF FLUID FROM BALLOON. INSTILLED 300 MLS FLUID PRIOR TO REMOVAL OF ESPINOZA. INSTRUCTED ON 6 BOTTLE AND PT VERBALIZED UNDERSTANDING.
--- NOTE | 2021-11-28 08:39 | NUR ---
PT RESTING IN BED. 6 BTTL STARTED. PT EATING AND DRINKING WITH OUT N/V. TOLERATING PO INTAKE WELL. INT FLUIDS.
--- NOTE | 2021-11-28 09:46 | NUR ---
Follow-up; Clerical Adviser looked in on patient who complained about being cold yesterday. Patient stated that they came to fix the heater shortly after Nurse called them. Patient has no complaints today and states he has had wonderful care...that the nurses here are wonderful.
[2021-11-28 11:10] VITALS: BP 118/46; PULSE 90; TEMP 97.8
--- NOTE | 2021-11-28 16:27 | NUR ---
DISCHARGE INSTSRUCTIONS REVIEWED WITH PT AND SPOUSE. QUESTIONS SOLICITED AND ANSWERED. PT LEFT PER WHEEL CHAIR WITH STAFF.
== END 2021-11-28 16:28 | disposition home or self-care (01) | DRG 909 ==
LOC: SDCO 10:56 → SURG 15:30 → SDCO 11-26 15:30 → SURG 11-26 23:59
PROVIDERS: Urology; ADMIT Urology
PROC: 0TBB8ZZ Excision of Bladder, Via Natural or Artificial Opening Endoscopic (ICD-10-PCS; 2021-11-24)
PROC: BT141ZZ Fluoroscopy of Kidneys, Ureters and Bladder using Low Osmolar Contrast (ICD-10-PCS; 2021-11-24)
PROC: 0T5B8ZZ Destruction of Bladder, Via Natural or Artificial Opening Endoscopic (ICD-10-PCS; 2021-11-24 13:00)
PROC: 0TCB8ZZ Extirpation of Matter from Bladder, Via Natural or Artificial Opening Endoscopic (ICD-10-PCS; principal; 2021-11-27 17:00)
PROC: 0W3R8ZZ Control Bleeding in Genitourinary Tract, Via Natural or Artificial Opening Endoscopic (ICD-10-PCS; 2021-11-27 17:00)
DX: N99.820 Postprocedural hemorrhage of a genitourinary system organ or structure following a genitourinary system procedure (principal); C67.9 Malignant neoplasm of bladder, unspecified; R31.0 Gross hematuria; E78.5 Hyperlipidemia, unspecified; I10 Essential (primary) hypertension; E78.1 Pure hyperglyceridemia; E66.3 Overweight; E11.51 Type 2 diabetes mellitus with diabetic peripheral angiopathy without gangrene; D64.9 Anemia, unspecified; Y83.8 Other surgical procedures as the cause of abnormal reaction of the patient, or of later complication, without mention of misadventure at the time of the procedure; Z87.442 Personal history of urinary calculi; Z68.24 Body mass index [BMI] 24.0-24.9, adult
CPT/HCPCS: OP; J0690; J1100; J2405; J2704; J3010; J3480; J7030; J9280; Q9967

== ENCOUNTER 2022-01-03 10:54 | Day surgery (SDC) | payer MEDICARE, BC ==
[2022-01-03] VITALS (8 sets, daily range): BP systolic 101–135; BP diastolic 53–90; PULSE 56–91; TEMP 97.4–97.8
[~2022-01-03] VITALS: Ht 185.4 cm; Wt 78.2 kg
[~2022-01-03 10:54] MED LIST changes: +HALDOL 1MG T1 MG/TAB PO
--- NOTE | 2022-01-03 15:17 | NUR ---
Pt. is s/p TURBT and admitted to unit. He is awake, alert & oriented. Per PACU nurse, dilaudid was admiminstered to pt. for pain; he currently denies any pain. IV site rt. forearm is without redness/swelling. CBI continues to infuse with clear, yellow urine noted in drainage bag. Pt. denies further needs at this time. Call light is within his reach
[2022-01-03] MEDS ORDERED: HALDOL 1MG T1 MG/TAB PO (15:25)
[2022-01-03] MEDS ORDERED: ASPIRIN 81M81 MG/TA2 PO (15:27)
--- NOTE | 2022-01-03 16:55 | NUR ---
Pt. resting in bed. Awake and alert. remains at his bedside. He denies any pain. Denies nausea. Tolerating PO okay; diet advanced to regular. CBI continues with clear, yellow urine in cherry drainage bag. He denies further needs at this time. Call light is within his reach
--- NOTE | 2022-01-03 20:50 | NUR ---
PATIENT DOING WELL TONIGHT. ALERT AND ORIENTED. DENIES PAIN. DENIES NAUSEA. CBI INFUSING SLOW WITH CLEAR YELLOW URINE NOTED TO ESPINOZA CATHETER DRAINAGE BAG. TOLERATING PO FLUIDS AND GENERAL DIET. PATIENTS WAS AT BEDSIDE TILL 1999. R FA IV PATENT AND FLUSHED EASILY. CURRENTLY RESTING IN BED. NO OTHER NEEDS PER PATIENT.
[2022-01-04 00:11] VITALS: BP 111/55; PULSE 68; TEMP 97.5
[2022-01-04 04:42] VITALS: BP 134/48; PULSE 54; TEMP 97.6
[2022-01-04 07:11] VITALS: BP 133/52; PULSE 60; TEMP 97.8
--- NOTE | 2022-01-04 09:25 | NUR ---
CHARLIE met with the patient to discuss discharge plan. The patient lives in [place] with his , Shana (ph#[phone]). He reports independence with ADLs and has a cane available, if needed. The patient's PCP is Dr. Maria Luisa Awan and he receives his medications from [facility]. He reports no difficulties obtaining his meds. The patient does not have a DPOA-HC in EMR, but he states that he does have one completed and that Dr. Awan's office should have a copy. CHARLIE attempted to contacted the dialysis technician at Dr. Awan's office to inquire if they have a copy. SW left her a voicemail. The patient plans on returning home with his upon discharge. No additional needs at this time. *Discharge plan: home with *
--- NOTE | 2022-01-04 10:38 | NUR ---
Molly, welfare case worker, at [facility], states that they do not have a DPOA-HC on file for the patient.
[2022-01-04 11:22] VITALS: BP 147/51; PULSE 70; TEMP 97.7
--- NOTE | 2022-01-04 15:46 | NUR ---
PT DISCHARGE TEACHING COMPLETE. INFOMRATION GIVEN ABOUT MEDICATIONS AND FOLLOW UP APPOINTMENTS. IV REMOVED. NO OTHER CONCERNS AT THIS TIME. PT ESCORTED OUT BY KENNETH
== END 2022-01-04 15:47 | disposition home or self-care (01) ==
LOC: SDCO 10:54 → SURG 14:55 → SDCO 01-04 15:47
DX: C67.8 Malignant neoplasm of overlapping sites of bladder (principal); N32.89 Other specified disorders of bladder; Z87.891 Personal history of nicotine dependence
CPT/HCPCS: OP; J0690; J1100; J1170; J2370; J2405; J2704; J3010

== ENCOUNTER → 2024-04-15 | Outpatient (CLI) | payer MEDICARE, BC | LOC: COL.RAD 08:50 | DX: I71.40 Abdominal aortic aneurysm, without rupture, unspecified (principal); K57.32 Diverticulitis of large intestine without perforation or abscess without bleeding; R91.8 Other nonspecific abnormal finding of lung field; K40.20 Bilateral inguinal hernia, without obstruction or gangrene, not specified as recurrent ==